=== PATIENT | female | born 1950 | race Caucasian/White ===

== ENCOUNTER 2020-09-27 07:12 | Emergency (ER) | payer OTHER, SELFPAY ==
--- NOTE | ~2020-09-27 | XR_ITS ---
EXAMINATION: [id number]_CR DATE: 09/27/2020 08:38 INDICATION: Posterior neck pain. TECHNIQUE: 3 views of cervical spine were obtained. COMPARISON: None. FINDINGS: There is 7 degrees levocurvature of cervicothoracic spine. There is hypolordosis of cervica l spine. Vertebral body heights are normal. There is mildly decreased disc height at C4-C5 and modera tely decreased disc height at C5-C6 and C6-C7. There is multilevel facet joint osteoarthritis, severe on the right at C4-C5 and on the left at C5-C6 and C6-C7. There is mild central canal stenosis at C6 -C7. No prevertebral soft tissue swelling. IMPRESSION: 1. Moderate cervical spondylosis. Reviewed, dictated and finalized at location A.
[2020-09-27 07:25] VITALS: BP 141/88; PULSE 80; RESP 16; TEMP 37; O2SAT 96
--- NOTE | 2020-09-27 07:39 | ED.GENADULT ---
HPI - General Adult General Chief complaint: Neck Pain/Injury Stated complaint: shoulder pain Source: patient Mode of arrival: ambulatory Limitations: no limitations History of Present Illness HPI narrative: Padmini presented to the ED with pain in her superior left trapezius and left neck. Pain started yesterday while she was sitting in the hospital with her son. Her son is terminally ill with cancer at [facility] so has been with him every day at the bedside. The pain continues to get worse. There was no trauma or fall. No pain shooting in to the arms. No numbness or weakness. Related Data Home Medications Medication Instructions Recorded Confirmed lisinopril 20 mg PO DAILY 09/27/20 09/27/20 Allergies Allergy/AdvReac Type Severity Reaction Status Date / Time No Known Allergies Allergy Verified 09/27/20 07:35 Review of Systems Constitutional: Constitutional: Reports no additional constitutional complaints, Denies chills and Denies fever(s) Eyes: Eyes: Reports no additional eye complaints ENT: Reports system reviewed and no additional complaints, except as documented Cardiovascular: Cardiovascular: Reports no additional cardiovascular complaints Respiratory: Respiratory: Reports no additional respiratory complaints Gastrointestinal: Gastrointestinal: Reports no additional gastrointestinal complaints Genitourinary: Genitourinary: Reports no additional female genitourinary complaints Musculoskeletal: Musculoskeletal: Reports as per HPI Integumentary/Breasts: Skin/Breast: Reports system reviewed and no additional complaints, except as docu Neurologic: Reports system reviewed and no additional complaints, except as documented Psychiatric: Psychiatric: Reports no additional psychiatric complaints Endocrine: Endocrine: Reports no additional endocrine complaints Hematologic/Lymphatic: Hematologic/Lymphatic: Reports no additional hematologic/lymphatic complaints Allergic/Immunologic: Allergic/Immunologic: Reports no additional allergic/immunologic complaints Exam Const: General: alert Orientation/consciousness: patient oriented x3 Limitations: No altered mental status HENMT: Head: normal to inspection Other: atraumatic Eyes: Conjunctivae: conjunctivae normal Pupils: Equal, round and reactive pupils present Neck: Neck: normal visual inspection Chest: Chest palpation & inspection: normal inspection of the chest Resp: Effort & Inspection: normal respiratory effort, not labored and not tachypneic Cardio: Rate: regular rate GI: GI Palp: No Soft to palpation, No Tenderness to palpation present (GI) and No Guarding due to palpation present (GI) : General: No CVA tenderness Skin: General skin exam: normal color Rashes: no rashes Neuro: General: patient oriented x3 and moves all extremities Extrem: General: normal to inspection Psych: Appearance: grossly normal Mental Status: mental status grossly normal Thought content: Yes Normal thought content present Course Course Emergency Course: ordered radiographs. Given toradol and flexeril for the pain. EXAMINATION: XR_[id number]_CR DATE: 09/27/2020 08:38 INDICATION: Posterior neck pain. TECHNIQUE: 3 views of cervical spine were obtained. COMPARISON: None. FINDINGS: There is 7 degrees levocurvature of cervicothoracic spine. There is hypolordosis of cervical spine. Vertebral body heights are normal. There is mildly decreased disc height at C4-C5 and moderately decreased disc height at C5-C6 and C6-C7. There is multilevel facet joint osteoarthritis, severe on the right at C4-C5 and on the left at C5-C6 and C6-C7. There is mild central canal stenosis at C6-C7. No prevertebral soft tissue swelling. IMPRESSION: 1. Moderate cervical spondylosis. Pain was improved after meds Vital Signs Vital signs: Vital Signs Temperature 98.6 F 09/27/20 07:25 Pulse Rate 80 09/27/20 07:25 Respiratory Rate 16 09/27/20 07:25 Blood Press
[2020-09-27] MEDS: KETOROLAC 30 MG/ML VIAL (*BKC) IM (07:47)
[2020-09-27] MEDS: CYCLOBENZAPRINE HCL 5 MG TABLET PO (07:51)
[2020-09-27 09:04] VITALS: BP 139/91; PULSE 88; RESP 16; O2SAT 100
== END 2020-09-27 09:09 | disposition home or self-care (01) ==
PROVIDERS: Emergency Provider Family Medicine
DX: S16.1XXA Strain of muscle, fascia and tendon at neck level, initial encounter (principal)
CPT/HCPCS: 72040; 96372; 99283; A9270; J1885